=== PATIENT | female | born 1985 | race American Indian/Alaskan Native ===

== ENCOUNTER 2020-11-08 13:32 | Emergency (ER) | payer SELFPAY ==
[2020-11-08 14:14] VITALS: BP 113/82
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
[2020-11-08] MEDS ORDERED: oxyCODONE /ACETAMINOPHEN 5-325MG TAB PO ONE (15:43)
[2020-11-08] MEDS ORDERED: IBUPROFEN 800 MG TAB PO STA (15:43)
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
[2020-11-08] MEDS ORDERED: TETANUS,DIPH,PERTUSS(ACELL) VACCINE 0.5 ML SYRINGE IM ONE (16:13)
== END 2020-11-08 17:18 | disposition home or self-care (01) ==
LOC: ED 13:32
DX: S67.22XA Crushing injury of left hand, initial encounter (principal); W22.8XXA Striking against or struck by other objects, initial encounter; Y93.89 Activity, other specified; Y92.89 Other specified places as the place of occurrence of the external cause; Y99.8 Other external cause status
CPT/HCPCS: 90471; 90715; 99283